=== PATIENT | male | born 1940 | race Caucasian/White ===

== ENCOUNTER 2023-11-10 03:19 | Inpatient (IN) | payer MEDICARE, BC ==
[~2023-11-10] VITALS: Ht 177.8 cm; Wt 90.7 kg
[2023-11-10] MEDS ORDERED: hydrALAZINE HCL IV 20 MG VIAL ONE (04:12)
[2023-11-10] MEDS ORDERED: FUROSEMIDE 40 MG/4 ML VIAL ONE (04:12)
[2023-11-10 04:16] LABS: BASOPHILS % (AUTO) 0.3 % (0.0-2.0); EOSINOPHILS # (AUTO) 0.2 K/uL (0.0-0.7); EOSINOPHILS % (AUTO) 1.2 % (0.0-6.0); HEMATOCRIT 44 % (39-51); HEMOGLOBIN 15.1 g/dL (13.5-17.5); LYMPHOCYTES # (AUTO) 1.9 K/uL (0.8-4.8); LYMPHOCYTES % (AUTO) 13.8 % (20.0-44.0); MEAN CORPUSCULAR HEMOGLOBIN 31 PG (26.0-33.0); MEAN CORPUSCULAR HGB CONC 34 g/dl (31.0-36.0); MEAN CORPUSCULAR VOLUME 90 fL (80-96); MONOCYTES # (AUTO) 0.6 K/uL (0.1-1.30); NEUTROPHILS # (AUTO) 11.2 K/uL (1.8-8.9); NEUTROPHILS % (AUTO) 80.7 % (43.0-81.0); PLATELET COUNT (AUTO) 180 K/uL (150-450); RED CELL DISTRIBUTION WIDTH 14.2 % (11.5-15.0); WHITE BLOOD COUNT (AUTO) 13.9 K/uL (4.3-11.0)
[2023-11-10 04:29] LABS: INR 0.99 (0.91-1.10); PARTIAL THROMBOPLASTIN TIME 27.6 SEC (24.3-34.3); PROTHROMBIN TIME 10.5 SECS (9.2-11.1)
[2023-11-10] MEDS: hydrALAZINE HCL IV 20 MG VIAL IV ONE (04:35)
[2023-11-10 04:36] LABS: ALANINE AMINOTRANSFERASE 24 U/L (12-78); ALBUMIN 3.4 g/dL (3.4-5.0); ALKALINE PHOSPHATASE 149 U/L (46-116); ASPARTATE AMINOTRANSFERASE 15 U/L (15-37); BILIRUBIN,DIRECT 0.2 mg/dL (0.0-0.2); BILIRUBIN,TOTAL 0.8 mg/dL (0.2-1.0); CALCIUM, SERUM 9.8 mg/dL (8.5-10.1); CARBON DIOXIDE 23 mmol/L (21-32); CHLORIDE 105 mmol/L (98-107); CREATININE 1.3 mg/dL (0.6-1.3); GLUCOSE 127 mg/dL (74-106); NT-PRO BNP 730 pg/mL (0-125); SODIUM SERUM 141 mmol/L (136-145); TOTAL PROTEIN, SERUM 6.8 g/dL (6.4-8.2); UREA NITROGEN, BLOOD 18 mg/dL (7-18)
[2023-11-10] MEDS: FUROSEMIDE 40 MG/4 ML VIAL IV ONE (04:40)
[2023-11-10] MEDS: MORPHINE SULFATE INJ 2 MG/ML DISP.SYRIN IV ONE (05:00)
[2023-11-10] MEDS ORDERED: MORPHINE SULFATE INJ 4 MG/ML DISP.SYRIN ONE (05:05)
[2023-11-10] MEDS ORDERED: ACETAMINOPHEN 325 MG TABLET PO PRN (06:00)
[2023-11-10] MEDS ORDERED: ZOLPIDEM TARTRATE 5 MG TABLET PO PRN (06:00)
[2023-11-10] MEDS ORDERED: Z GUARD REMEDY 4 OZ OINT TP PRN (06:00)
[2023-11-10] MEDS ORDERED: MAGNESIUM HYDROXIDE 30 ML UDC PO PRN (06:00)
[2023-11-10] MEDS ORDERED: NITROGLYCERIN 0.4 MG/TAB BOTTLE SL PRN (06:00)
[2023-11-10] MEDS ORDERED: IBUP200C5 PO (07:28)
[2023-11-10] MEDS ORDERED: ATOR40TA PO (07:28)
[2023-11-10] MEDS ORDERED: CHOL100062 PO (07:28)
[2023-11-10] MEDS ORDERED: OLME40TA18 PO (07:28)
[2023-11-10] MEDS ORDERED: BRIM5DRO2 EACHEYE (07:28)
[2023-11-10] MEDS ORDERED: CLOP75TA15 PO (07:28)
[2023-11-10] MEDS ORDERED: ALLO100T PO (07:28)
[2023-11-10] MEDS ORDERED: METO25CA PO (07:28)
[2023-11-10] MEDS ORDERED: BIMA2.5D5 EACHEYE (07:28)
[2023-11-10] MEDS ORDERED: ONDANSETRON HCL/PF 4 MG/2 ML VIAL ONE (07:57)
[2023-11-10] MEDS: ONDANSETRON HCL/PF 4 MG/2 ML VIAL IVP PRN (08:03)
[2023-11-10] MEDS: METOPROLOL TARTRATE 50 MG TABLET PO SCH (09:00)
[2023-11-10] MEDS ORDERED: LATANOPROST EYE DROP 0.005% 2.5 ML BOTTLE OP SCH (09:00)
[2023-11-10] MEDS: ALLOPURINOL 100 MG TABLET PO SCH (09:00)
[2023-11-10] MEDS ORDERED: Medication Not On Formulary EA (Metoprolol Succinate (Kapspargo Sprinkle) 25 MG) PO SCH (09:00)
[2023-11-10] MEDS: ENOXAPARIN SODIUM 40 MG/0.4 ML DISP.SYRIN SQ SCH (09:00)
[2023-11-10] MEDS: ASPIRIN 325 MG TABLET PO SCH (09:00)
[2023-11-10] MEDS ORDERED: ENOXAPARIN SODIUM 40 MG/0.4 ML DISP.SYRIN SQ ONE (09:06)
[2023-11-10] MEDS ORDERED: CLOPIDOGREL BISULFATE 75 MG TABLET ONE (09:06)
[2023-11-10] MEDS ORDERED: LOSARTAN POTASSIUM 50 MG TABLET ONE (09:06)
[2023-11-10] MEDS ORDERED: PANTOPRAZOLE 40 MG TABLET.DR PO ONE (09:07)
[2023-11-10] MEDS ORDERED: ASPIRIN EC 325 MG TABLET.DR PO ONE (09:07)
[2023-11-10] MEDS ORDERED: ALLOPURINOL 100 MG TABLET ONE (09:09)
[2023-11-10] MEDS ORDERED: MAG HYDROX/AL HYDROX/SIMETH 30 ML UDC ONE (09:27)
[2023-11-10] MEDS: MAG HYDROX/AL HYDROX/SIMETH 30 ML UDC PO PRN (09:33)
[2023-11-10] MEDS: LOSARTAN POTASSIUM 50 MG TABLET PO SCH (09:34)
[2023-11-10] MEDS: PANTOPRAZOLE 40 MG TABLET.DR PO SCH (09:36)
[2023-11-10] MEDS ORDERED: METOPROLOL TARTRATE 50 MG TABLET ONE (10:05)
[2023-11-10] MEDS: CLOPIDOGREL BISULFATE 75 MG TABLET PO SCH (10:30)
[2023-11-10] MEDS: FUROSEMIDE 20 MG/2 ML VIAL IV SCH ×2 (11:40→16:33)
[2023-11-10 12:40] VITALS: BP 154/73
[2023-11-10] MEDS: hydrALAZINE HCL 25 MG TABLET PO SCH (14:56)
[2023-11-10 16:00] VITALS: BP 152/75; TEMP 97.3; O2SAT 96
[2023-11-10 20:00] VITALS: BP 169/75; TEMP 97.5; O2SAT 97
[2023-11-10] MEDS: ATORVASTATIN 40 MG TABLET PO SCH (21:01)
[2023-11-11] VITALS: BP 176/71; TEMP 98.6; O2SAT 98
[2023-11-11 04:00] VITALS: BP 176/66; TEMP 98.1; O2SAT 95
[2023-11-11 05:00] VITALS: BP 176/66; TEMP 98.4; O2SAT 95
[2023-11-11 06:50] LABS: BASOPHILS % (AUTO) 0.2 % (0.0-2.0); EOSINOPHILS # (AUTO) 0.1 K/uL (0.0-0.7); EOSINOPHILS % (AUTO) 0.5 % (0.0-6.0); HEMATOCRIT 45 % (39-51); HEMOGLOBIN 15.5 g/dL (13.5-17.5); LYMPHOCYTES # (AUTO) 2.1 K/uL (0.8-4.8); LYMPHOCYTES % (AUTO) 16.1 % (20.0-44.0); MEAN CORPUSCULAR HEMOGLOBIN 31 PG (26.0-33.0); MEAN CORPUSCULAR HGB CONC 35 g/dl (31.0-36.0); MEAN CORPUSCULAR VOLUME 90 fL (80-96); MONOCYTES # (AUTO) 1.1 K/uL (0.1-1.30); MONOCYTES % (AUTO) 8.1 % (2.0-12.0); NEUTROPHILS # (AUTO) 9.9 K/uL (1.8-8.9); NEUTROPHILS % (AUTO) 75.1 % (43.0-81.0); PLATELET COUNT (AUTO) 174 K/uL (150-450); RED CELL DISTRIBUTION WIDTH 14.1 % (11.5-15.0); WHITE BLOOD COUNT (AUTO) 13.2 K/uL (4.3-11.0)
[2023-11-11 07:17] LABS: ALANINE AMINOTRANSFERASE 30 U/L (12-78); ALBUMIN 3.5 g/dL (3.4-5.0); ALKALINE PHOSPHATASE 141 U/L (46-116); ASPARTATE AMINOTRANSFERASE 30 U/L (15-37); CARBON DIOXIDE 27 mmol/L (21-32); CHLORIDE 102 mmol/L (98-107); CREATININE 1.6 mg/dL (0.6-1.3); GLUCOSE 103 mg/dL (74-106); MAGNESIUM 2.2 mg/dL (1.8-2.4); NT-PRO BNP 1866 pg/mL (0-125); PHOSPHORUS 3.6 mg/dL (2.5-4.9); POTASSIUM 3.9 mmol/L (3.5-5.1); SODIUM SERUM 143 mmol/L (136-145); UREA NITROGEN, BLOOD 21 mg/dL (7-18)
[2023-11-11 07:30] VITALS: BP 168/75; TEMP 99.3; O2SAT 96
[2023-11-11 08:01] LABS: BILIRUBIN,DIRECT 0.3 mg/dL (0.0-0.2); BILIRUBIN,TOTAL 1.3 mg/dL (0.2-1.0)
[2023-11-11] MEDS ORDERED: CLONIDINE HCL 0.1 MG TABLET PO PRN (10:30)
[2023-11-11 20:00] VITALS: BP 119/61; TEMP 98.1; O2SAT 97
[2023-11-11] MEDS: hydrALAZINE HCL 25 MG TABLET PO SCH (21:10)
[2023-11-12] VITALS: BP 161/69; TEMP 97.2; O2SAT 97
[2023-11-12 04:00] VITALS: BP 157/80; TEMP 98.2; O2SAT 96
[2023-11-12 08:00] VITALS: BP 145/64; TEMP 98.6; O2SAT 96
[2023-11-12] MEDS ORDERED: FURO20TA4 PO (09:24)
[2023-11-12] MEDS: FUROSEMIDE 20 MG TABLET PO SCH (09:29)
[2023-11-12 09:49] LABS: CARBON DIOXIDE 26 mmol/L (21-32); CHLORIDE 102 mmol/L (98-107); CREATININE 1.8 mg/dL (0.6-1.3); GLUCOSE 174 mg/dL (74-106); POTASSIUM 3.3 mmol/L (3.5-5.1); SODIUM SERUM 139 mmol/L (136-145); UREA NITROGEN, BLOOD 25 mg/dL (7-18)
[2023-11-12 12:24] VITALS: BP 145/64
[2023-11-12] MEDS: POTASSIUM CHLORIDE 20 MEQ TAB.PRT.SR PO ONE (12:24)
== END 2023-11-12 13:40 | disposition home health service (06) | DRG 305 ==
LOC: ER 03:23 → TRANSITION 06:55 → TELE 09:24 → MED 11-12 11:34
PROVIDERS: ADMIT Internal Medicine; ATTEND Internal Medicine
DX: I16.0 Hypertensive urgency (principal); N17.9 Acute kidney failure, unspecified; Z95.1 Presence of aortocoronary bypass graft; I87.2 Venous insufficiency (chronic) (peripheral); Z88.2 Allergy status to sulfonamides; R60.9 Edema, unspecified; Z90.79 Acquired absence of other genital organ(s); Z85.46 Personal history of malignant neoplasm of prostate; M16.12 Unilateral primary osteoarthritis, left hip; I10 Essential (primary) hypertension; E78.5 Hyperlipidemia, unspecified; I25.10 Atherosclerotic heart disease of native coronary artery without angina pectoris; Z91.199 Patient's noncompliance with other medical treatment and regimen due to unspecified reason; Z91.148 Patient's other noncompliance with medication regimen for other reason; Z79.02 Long term (current) use of antithrombotics/antiplatelets; Z79.899 Other long term (current) drug therapy; R32 Unspecified urinary incontinence
CPT/HCPCS: 36415; 70450-TC; 71045-TC; 80048-TC; 80076-TC; 83735-TC; 83880; 84100-TC; 84443-TC; 84484-TC; 85025-TC; 85730-TC; 93307-TC; 97110-TC; 97116-TC; 97530-TC; G0378; J0360; J1650; J1940; J2270; J2405

== ENCOUNTER 2024-10-06 13:22 | Inpatient (IN) | payer MEDICARE, BC ==
[~2024-10-06] VITALS: Ht 180.3 cm; Wt 90.7 kg
[~2024-10-06 13:22] MED LIST: ALLO100T PO; ATOR40TA PO; BIMA2.5D5 EACHEYE; BRIM5DRO2 EACHEYE; CHOL100062 PO; CLOP75TA15 PO; FURO20TA4 PO; IBUP200C5 PO; METO25CA PO; OLME40TA18 PO
[2024-10-06 14:20] LABS: BASOPHILS # (AUTO) 0.1 K/uL (0.0-0.2); BASOPHILS % (AUTO) 0.4 % (0.0-2.0); EOSINOPHILS # (AUTO) 0.1 K/uL (0.0-0.7); EOSINOPHILS % (AUTO) 0.4 % (0.0-6.0); HEMATOCRIT 38 % (39-51); LYMPHOCYTES # (AUTO) 1.2 K/uL (0.8-4.8); LYMPHOCYTES % (AUTO) 7.7 % (20.0-44.0); MEAN CORPUSCULAR HEMOGLOBIN 31 PG (26.0-33.0); MEAN CORPUSCULAR HGB CONC 35 g/dl (31.0-36.0); MEAN CORPUSCULAR VOLUME 89 fL (80-96); MONOCYTES # (AUTO) 0.9 K/uL (0.1-1.30); MONOCYTES % (AUTO) 6.1 % (2.0-12.0); NEUTROPHILS # (AUTO) 12.8 K/uL (1.8-8.9); NEUTROPHILS % (AUTO) 85.4 % (43.0-81.0); PLATELET COUNT (AUTO) 98 K/uL (150-450); RED BLOOD CELL COUNT(AUTO) 4.23 MIL/uL (4.5-6.0); RED CELL DISTRIBUTION WIDTH 14.4 % (11.5-15.0)
[2024-10-06 14:25] LABS: CALCIUM, SERUM 8.8 mg/dL (8.5-10.1); CARBON DIOXIDE 25 mmol/L (21-32); CHLORIDE 103 mmol/L (98-107); CREATININE 1.7 mg/dL (0.6-1.3); GLUCOSE 103 mg/dL (74-106); POTASSIUM 3.3 mmol/L (3.5-5.1); SODIUM SERUM 137 mmol/L (136-145); UREA NITROGEN, BLOOD 26 mg/dL (7-18)
[2024-10-06 14:42] LABS: D-DIMER 2.48 mg/L(FEU (0.17-0.50); INR 1.07 (0.91-1.10); PARTIAL THROMBOPLASTIN TIME 28.7 SEC (24.3-34.3); PROTHROMBIN TIME 11.3 SECS (9.2-11.1)
[2024-10-06] MEDS: CEFEPIME 1 GM in IV D5W 50 ML IV ONE (15:13)
[2024-10-06 15:16] LABS: LACTIC ACID 2.4 mmol/L (0.4-2.0)
[2024-10-06] MEDS ORDERED: ACET-2812 PO (15:23)
[2024-10-06] MEDS ORDERED: MAGNESIUM HYDROXIDE 30 ML UDC PO PRN (15:30)
[2024-10-06] MEDS ORDERED: ONDANSETRON HCL/PF 4 MG/2 ML VIAL IVP PRN (15:30)
[2024-10-06] MEDS ORDERED: ZOLPIDEM TARTRATE 5 MG TABLET PO PRN (15:30)
[2024-10-06] MEDS ORDERED: MAG HYDROX/AL HYDROX/SIMETH 30 ML UDC PO PRN (15:30)
[2024-10-06 15:49] LABS: BILIRUBIN,DIRECT 0.5 mg/dL (0.0-0.2); BILIRUBIN,TOTAL 1.5 mg/dL (0.2-1.0)
[2024-10-06] MEDS: VANCOMYCIN 1 GM in IV D5W 250 ML IV ONE (15:50)
[2024-10-06] MEDS ORDERED: CLINDAMYCIN IV RTU IN D5W 900 MG/50 ML PIGGYBACK IV SCH (17:00)
[2024-10-06] MEDS: METOPROLOL SUCCINATE 25 MG TAB.SR.24H PO SCH (17:14)
[2024-10-06] MEDS: HYDROCODONE/APAP 5/325MG TABLET PO PRN (17:15)
[2024-10-06 18:06] LABS: ANISOCYTOSIS 1+; LYMPHOCYTES % (MANUAL) 11 % (16-48); MONOCYTES % (MANUAL) 9 % (0-11.0); NEUTROPHILS % (MANUAL) 80 (42-76); PLATELET ESTIMATE DECREASED
[2024-10-06] MEDS: CLINDAMYCIN 900 MG in IV D5W 50 ML IV SCH (18:09)
[2024-10-06 20:00] VITALS: BP 144/73; TEMP 98; TEMP 98.1; O2SAT 98
[2024-10-06] MEDS: ATORVASTATIN 40 MG TABLET PO SCH (21:29)
[2024-10-06] MEDS: MORPHINE SULFATE INJ 2 MG/ML DISP.SYRIN IV ONE (21:30)
[2024-10-06] MEDS: HEPARIN SODIUM, PORCINE 5000 UNITS/1 ML VIAL SQ SCH (21:31)
[2024-10-07 04:00] VITALS: BP 125/72; TEMP 99.3; O2SAT 94
[2024-10-07 07:44] LABS: BASOPHILS % (AUTO) 0.1 % (0.0-2.0); EOSINOPHILS % (AUTO) 0.1 % (0.0-6.0); HEMATOCRIT 37 % (39-51); HEMOGLOBIN 12.6 g/dL (13.5-17.5); LYMPHOCYTES # (AUTO) 0.8 K/uL (0.8-4.8); LYMPHOCYTES % (AUTO) 6.9 % (20.0-44.0); MEAN CORPUSCULAR HEMOGLOBIN 31 PG (26.0-33.0); MEAN CORPUSCULAR HGB CONC 35 g/dl (31.0-36.0); MEAN CORPUSCULAR VOLUME 90 fL (80-96); MONOCYTES # (AUTO) 0.7 K/uL (0.1-1.30); MONOCYTES % (AUTO) 6.7 % (2.0-12.0); NEUTROPHILS # (AUTO) 9.4 K/uL (1.8-8.9); NEUTROPHILS % (AUTO) 86.2 % (43.0-81.0); PLATELET COUNT (AUTO) 101 K/uL (150-450); RED BLOOD CELL COUNT(AUTO) 4.04 MIL/uL (4.5-6.0); RED CELL DISTRIBUTION WIDTH 14.2 % (11.5-15.0); WHITE BLOOD COUNT (AUTO) 10.9 K/uL (4.3-11.0)
[2024-10-07 08:00] LABS: CALCIUM, SERUM 8.6 mg/dL (8.5-10.1); CREATININE 1.4 mg/dL (0.6-1.3); LACTIC ACID 1.2 mmol/L (0.4-2.0); MAGNESIUM 1.7 mg/dL (1.8-2.4); PHOSPHORUS 3.5 mg/dL (2.5-4.9); POTASSIUM 3.4 mmol/L (3.5-5.1)
[2024-10-07 08:56] VITALS: BP 148/72; TEMP 99.7; O2SAT 95
[2024-10-07] MEDS: CHOLECALCIFEROL 1,000 UNIT TABLET (VIT D3) PO SCH ×2 (09:00→17:29)
[2024-10-07] MEDS: CLOPIDOGREL BISULFATE 75 MG TABLET PO SCH ×2 (09:00→17:29)
[2024-10-07] MEDS: LOSARTAN POTASSIUM 50 MG TABLET PO SCH (09:04)
[2024-10-07] MEDS: ALLOPURINOL 100 MG TABLET PO SCH (09:04)
[2024-10-07] MEDS: Z GUARD REMEDY 4 OZ OINT TP PRN (09:05)
[2024-10-07] MEDS: LATANOPROST EYE DROP 0.005% 2.5 ML BOTTLE OP SCH (09:05)
[2024-10-07] MEDS: POTASSIUM CHLORIDE 20 MEQ TAB.PRT.SR PO ONE (10:24)
[2024-10-07] MEDS: MAGNESIUM OXIDE 400 MG TABLET PO ONE (11:45)
[2024-10-07 12:21] VITALS: BP 107/63; TEMP 98.2; O2SAT 94
[2024-10-07] MEDS: ACETAMINOPHEN 325 MG TABLET PO PRN (15:56)
[2024-10-07 16:19] VITALS: BP 150/73; TEMP 102.7; O2SAT 95
[2024-10-07 20:00] VITALS: BP 138/77; TEMP 97.9; O2SAT 97
[2024-10-07] MEDS: TIMOLOL 0.5% SOLN OPHTH 5 ML BOTTLE OP SCH (22:00)
[2024-10-07] MEDS: BRIMONIDINE TARTRATE OPHT SOLN 5 ML BOTTLE EACHEYE SCH (22:17)
[2024-10-08] VITALS: BP 159/68; TEMP 98.2; O2SAT 97
[2024-10-08] MEDS ORDERED: CEFEPIME 2 GM in IV D5W 100 ML IV SCH (06:38)
[2024-10-08] MEDS: CEFEPIME 2 GM in IV D5W 100 ML IV SCH ×2 (06:38→17:08)
[2024-10-08 07:27] LABS: BASOPHILS % (AUTO) 0.4 % (0.0-2.0); EOSINOPHILS # (AUTO) 0.2 K/uL (0.0-0.7); EOSINOPHILS % (AUTO) 1.6 % (0.0-6.0); HEMATOCRIT 34 % (39-51); HEMOGLOBIN 11.7 g/dL (13.5-17.5); LYMPHOCYTES # (AUTO) 1.1 K/uL (0.8-4.8); LYMPHOCYTES % (AUTO) 11.1 % (20.0-44.0); MEAN CORPUSCULAR HEMOGLOBIN 31 PG (26.0-33.0); MEAN CORPUSCULAR HGB CONC 34 g/dl (31.0-36.0); MEAN CORPUSCULAR VOLUME 91 fL (80-96); MONOCYTES # (AUTO) 0.8 K/uL (0.1-1.30); MONOCYTES % (AUTO) 8.3 % (2.0-12.0); NEUTROPHILS # (AUTO) 7.8 K/uL (1.8-8.9); NEUTROPHILS % (AUTO) 78.6 % (43.0-81.0); PLATELET COUNT (AUTO) 116 K/uL (150-450); RED BLOOD CELL COUNT(AUTO) 3.75 MIL/uL (4.5-6.0); RED CELL DISTRIBUTION WIDTH 14.4 % (11.5-15.0); WHITE BLOOD COUNT (AUTO) 9.9 K/uL (4.3-11.0)
[2024-10-08 07:45] LABS: CALCIUM, SERUM 8.8 mg/dL (8.5-10.1); CREATININE 1.4 mg/dL (0.6-1.3); MAGNESIUM 1.9 mg/dL (1.8-2.4); PHOSPHORUS 3.2 mg/dL (2.5-4.9); POTASSIUM 3.1 mmol/L (3.5-5.1)
[2024-10-08 08:00] VITALS: BP 146/85; TEMP 98.2; O2SAT 97
[2024-10-08] MEDS: FUROSEMIDE 20 MG TABLET PO SCH (08:57)
[2024-10-08 10:07] LABS: CREATININE, URINE 180.7 MG/DL (30.0-125.0); URINE TOTAL PROTEIN 105.6 mg/dL (0-11.9)
[2024-10-08 10:12] LABS: APPEARANCE,URINE CLEAR (CLEAR); BILIRUBIN,URINE NEGATIVE (NEGATIVE); BLOOD, URINE TRACE-INTA Ery/uL (NEGATIVE); COLOR,URINE DARK YELLOW (YELLOW); KETONES,URINE NEGATIVE (NEGATIVE); LEUKOCYTE ESTERASE ,URINE TRACE (NEGATIVE); NITRITE, URINE NEGATIVE (NEGATIVE); PH,URINE 5.5 (5.0-8.0); PROTEIN,URINE 2+ mg/dl (NEGATIVE); UGLUCOSE NEGATIVE (NEGATIVE); UROBILINOGEN,URINE 0.2 EU/dL (0.2)
[2024-10-08 10:20] LABS: ADD URINE CULTURE YES; BACTERIA,URINE 2+ /HPF (None Seen); SQUAMOUS EPITHELIAL CELL,UR None Seen /HPF (None Seen)
[2024-10-08] MEDS: POTASSIUM CHLORIDE 20 MEQ TAB.PRT.SR PO SCH (10:20)
[2024-10-08] MEDS: LIDOCAINE 5% (PATCH) 1 EA PATCH TP SCH (10:21)
[2024-10-08] MEDS: CLOPIDOGREL BISULFATE 75 MG PO SCH (12:09)
[2024-10-08 13:29] LABS: EOSINOPHIL,URINE None Seen
[2024-10-08 16:00] VITALS: BP 137/79; TEMP 98.6; O2SAT 96
[2024-10-08] MEDS: APIXABAN 2.5 MG TABLET PO SCH (17:08)
[2024-10-08 20:00] VITALS: BP 145/75; TEMP 98.8; O2SAT 97
[2024-10-09 06:36] LABS: BASOPHILS % (AUTO) 0.2 % (0.0-2.0); EOSINOPHILS # (AUTO) 0.1 K/uL (0.0-0.7); EOSINOPHILS % (AUTO) 1.1 % (0.0-6.0); HEMATOCRIT 35 % (39-51); HEMOGLOBIN 12.1 g/dL (13.5-17.5); LYMPHOCYTES # (AUTO) 0.7 K/uL (0.8-4.8); LYMPHOCYTES % (AUTO) 6.4 % (20.0-44.0); MEAN CORPUSCULAR HEMOGLOBIN 31 PG (26.0-33.0); MEAN CORPUSCULAR HGB CONC 35 g/dl (31.0-36.0); MEAN CORPUSCULAR VOLUME 90 fL (80-96); MONOCYTES # (AUTO) 0.8 K/uL (0.1-1.30); MONOCYTES % (AUTO) 6.8 % (2.0-12.0); NEUTROPHILS # (AUTO) 9.6 K/uL (1.8-8.9); NEUTROPHILS % (AUTO) 85.5 % (43.0-81.0); PLATELET COUNT (AUTO) 153 K/uL (150-450); RED BLOOD CELL COUNT(AUTO) 3.89 MIL/uL (4.5-6.0); RED CELL DISTRIBUTION WIDTH 14.8 % (11.5-15.0); WHITE BLOOD COUNT (AUTO) 11.2 K/uL (4.3-11.0)
[2024-10-09 07:30] VITALS: BP 159/86; TEMP 100; O2SAT 97
[2024-10-09 07:52] LABS: ALBUMIN 2.1 g/dL (3.4-5.0); CALCIUM, SERUM 8.8 mg/dL (8.5-10.1); CREATININE 1.5 mg/dL (0.6-1.3); MAGNESIUM 1.9 mg/dL (1.8-2.4); PHOSPHORUS 2.5 mg/dL (2.5-4.9); POTASSIUM 3.9 mmol/L (3.5-5.1); TOTAL PROTEIN, SERUM 6.3 g/dL (6.4-8.2)
[2024-10-09 16:00] VITALS: BP 145/65; TEMP 98.1; O2SAT 97
[2024-10-09 20:00] VITALS: BP 145/74; TEMP 99.3; O2SAT 97
[2024-10-10 06:09] LABS: PTH, INTACT 34 pg/mL (15-65)
[2024-10-10 06:30] LABS: BASOPHILS # (AUTO) 0.1 K/uL (0.0-0.2); BASOPHILS % (AUTO) 0.5 % (0.0-2.0); EOSINOPHILS # (AUTO) 0.2 K/uL (0.0-0.7); EOSINOPHILS % (AUTO) 1.8 % (0.0-6.0); HEMATOCRIT 36 % (39-51); HEMOGLOBIN 12.1 g/dL (13.5-17.5); LYMPHOCYTES % (AUTO) 7.5 % (20.0-44.0); MEAN CORPUSCULAR HEMOGLOBIN 31 PG (26.0-33.0); MEAN CORPUSCULAR HGB CONC 34 g/dl (31.0-36.0); MEAN CORPUSCULAR VOLUME 91 fL (80-96); MONOCYTES % (AUTO) 7.3 % (2.0-12.0); NEUTROPHILS # (AUTO) 11.4 K/uL (1.8-8.9); NEUTROPHILS % (AUTO) 82.9 % (43.0-81.0); PLATELET COUNT (AUTO) 193 K/uL (150-450); RED BLOOD CELL COUNT(AUTO) 3.96 MIL/uL (4.5-6.0); RED CELL DISTRIBUTION WIDTH 14.8 % (11.5-15.0); WHITE BLOOD COUNT (AUTO) 13.8 K/uL (4.3-11.0)
[2024-10-10 06:56] LABS: CALCIUM, SERUM 8.9 mg/dL (8.5-10.1); CREATININE 1.3 mg/dL (0.6-1.3); MAGNESIUM 1.9 mg/dL (1.8-2.4); PHOSPHORUS 2.7 mg/dL (2.5-4.9); POTASSIUM 3.6 mmol/L (3.5-5.1); TOTAL PROTEIN, SERUM 6.2 g/dL (6.4-8.2)
[2024-10-10 08:38] VITALS: BP 151/75; TEMP 99.5; O2SAT 96
[2024-10-10 16:00] VITALS: BP 132/71; TEMP 99; O2SAT 100
[2024-10-10 20:00] VITALS: BP 143/68; TEMP 98.6; O2SAT 98
[2024-10-10 20:45] VITALS: BP 143/68; TEMP 98.6; O2SAT 98
[2024-10-11 07:21] LABS: BASOPHILS % (AUTO) 0.3 % (0.0-2.0); EOSINOPHILS # (AUTO) 0.3 K/uL (0.0-0.7); EOSINOPHILS % (AUTO) 2.3 % (0.0-6.0); HEMATOCRIT 35 % (39-51); HEMOGLOBIN 11.8 g/dL (13.5-17.5); LYMPHOCYTES # (AUTO) 1.2 K/uL (0.8-4.8); LYMPHOCYTES % (AUTO) 7.9 % (20.0-44.0); MEAN CORPUSCULAR HEMOGLOBIN 31 PG (26.0-33.0); MEAN CORPUSCULAR HGB CONC 34 g/dl (31.0-36.0); MEAN CORPUSCULAR VOLUME 91 fL (80-96); MONOCYTES # (AUTO) 1.1 K/uL (0.1-1.30); MONOCYTES % (AUTO) 7.2 % (2.0-12.0); NEUTROPHILS # (AUTO) 12.1 K/uL (1.8-8.9); NEUTROPHILS % (AUTO) 82.3 % (43.0-81.0); PLATELET COUNT (AUTO) 243 K/uL (150-450); RED BLOOD CELL COUNT(AUTO) 3.87 MIL/uL (4.5-6.0); RED CELL DISTRIBUTION WIDTH 14.9 % (11.5-15.0); WHITE BLOOD COUNT (AUTO) 14.7 K/uL (4.3-11.0)
[2024-10-11 07:52] LABS: CALCIUM, SERUM 8.7 mg/dL (8.5-10.1); CREATININE 1.3 mg/dL (0.6-1.3); POTASSIUM 3.6 mmol/L (3.5-5.1)
[2024-10-11 08:30] VITALS: BP_SYST 151; BP_SYST 165; BP_DIAS 71; BP_DIAS 86; TEMP 98.4; TEMP 98.6; O2SAT 97
[2024-10-11] MEDS: ACIDOPHILUS/BULGARICUS 1 EACH TAB.CHEW PO SCH (13:00)
[2024-10-11 16:00] VITALS: BP 151/86; TEMP 98.6; O2SAT 97
[2024-10-11 20:00] VITALS: BP 159/64; TEMP 97.3; O2SAT 97
[2024-10-11] MEDS ORDERED: CEFAZOLIN 1 GM VIAL IM SCH (21:00)
[2024-10-11] MEDS: CEFAZOLIN 2 GM in IV D5W 100 ML IV SCH (21:08)
[2024-10-11 21:30] VITALS: BP 153/86
[2024-10-12 02:41] VITALS: BP 140/80; TEMP 98.1; O2SAT 98
[2024-10-12 07:13] LABS: BASOPHILS % (AUTO) 0.2 % (0.0-2.0); EOSINOPHILS # (AUTO) 0.4 K/uL (0.0-0.7); HEMATOCRIT 36 % (39-51); LYMPHOCYTES % (AUTO) 8.3 % (20.0-44.0); MEAN CORPUSCULAR HEMOGLOBIN 30 PG (26.0-33.0); MEAN CORPUSCULAR HGB CONC 34 g/dl (31.0-36.0); MEAN CORPUSCULAR VOLUME 90 fL (80-96); MONOCYTES # (AUTO) 0.8 K/uL (0.1-1.30); MONOCYTES % (AUTO) 6.9 % (2.0-12.0); NEUTROPHILS % (AUTO) 81.6 % (43.0-81.0); PLATELET COUNT (AUTO) 285 K/uL (150-450); RED BLOOD CELL COUNT(AUTO) 3.94 MIL/uL (4.5-6.0); RED CELL DISTRIBUTION WIDTH 14.8 % (11.5-15.0); WHITE BLOOD COUNT (AUTO) 12.3 K/uL (4.3-11.0)
[2024-10-12 07:25] LABS: CALCIUM, SERUM 8.5 mg/dL (8.5-10.1); CREATININE 1.2 mg/dL (0.6-1.3); POTASSIUM 3.6 mmol/L (3.5-5.1)
[2024-10-12 07:30] VITALS: BP 154/82; TEMP 98.2; O2SAT 95
[2024-10-12 14:42] LABS: HIV-1 p24 ANTIGEN NON REACTIVE (NONREACTIVE); HIV-1/2 ANTIBODY NON REACTIVE (NONREACTIVE)
[2024-10-12 16:00] VITALS: BP 143/79; TEMP 99.3; O2SAT 98
[2024-10-12 20:00] VITALS: BP 141/77; TEMP 98.1; O2SAT 95
[2024-10-13 08:00] VITALS: BP 163/78; TEMP 98.1; O2SAT 98
[2024-10-13 08:50] VITALS: BP 163/78
[2024-10-13] MEDS ORDERED: TRAM50TA PO (12:47)
[2024-10-13] MEDS ORDERED: LIDO30AD10 TP (12:47)
[2024-10-13] MEDS ORDERED: CEFA1VIA19 IV (12:47)
[2024-10-13] MEDS ORDERED: FURO20TA4 PO (12:47)
[2024-10-13] MEDS ORDERED: APIX2.5T PO (12:47)
[2024-10-13] MEDS ORDERED: TRAM50TA2 PO (12:47)
[2024-10-13] MEDS ORDERED: ACID1TAB12 PO (12:47)
[2024-10-14 06:09] LABS: *SPE A/G RATIO 0.7 (0.7-1.7); *SPE ALBUMIN 2.1 g/dL (2.9-4.4); *SPE ALPHA-1-GLOBULIN 0.5 g/dL (0.0-0.4); *SPE ALPHA-2-GLOBULIN 1.1 g/dL (0.4-1.0); *SPE BETA GLOBULIN 0.8 g/dL (0.7-1.3); *SPE M-SPIKE Not Observed g/dL (Not Observed); *SPE PROTEIN TOTAL 5.1 g/dL (6.0-8.5); *SPEGAMMA GLOBULIN 0.6 g/dL (0.4-1.8)
[2024-10-14] MEDS ORDERED: CLOPIDOGREL BISULFATE 75 MG PO SCH (09:00)
== END 2024-10-13 14:40 | DRG 871 ==
LOC: ER 13:27 → MED 16:07 → TELE 10-07 03:18 → MED 10-08 10:07
PROVIDERS: ADMIT Nurse Practitioner Acute Care; ATTEND Nurse Practitioner Acute Care
DX: A41.50 Gram-negative sepsis, unspecified (principal); N17.0 Acute kidney failure with tubular necrosis; L03.115 Cellulitis of right lower limb; I50.32 Chronic diastolic (congestive) heart failure; I13.0 Hypertensive heart and chronic kidney disease with heart failure and stage 1 through stage 4 chronic kidney disease, or unspecified chronic kidney disease; L03.116 Cellulitis of left lower limb; E87.1 Hypo-osmolality and hyponatremia; E87.20 Acidosis, unspecified; I73.9 Peripheral vascular disease, unspecified; Z90.79 Acquired absence of other genital organ(s); E87.6 Hypokalemia; I25.10 Atherosclerotic heart disease of native coronary artery without angina pectoris; N18.9 Chronic kidney disease, unspecified; Z95.1 Presence of aortocoronary bypass graft; N40.0 Benign prostatic hyperplasia without lower urinary tract symptoms; Z85.46 Personal history of malignant neoplasm of prostate; Z85.07 Personal history of malignant neoplasm of pancreas; Z79.02 Long term (current) use of antithrombotics/antiplatelets; Z88.2 Allergy status to sulfonamides; Z79.899 Other long term (current) drug therapy; I87.2 Venous insufficiency (chronic) (peripheral); I89.0 Lymphedema, not elsewhere classified; M89.8X9 Other specified disorders of bone, unspecified site; E86.9 Volume depletion, unspecified; D64.9 Anemia, unspecified; B96.89 Other specified bacterial agents as the cause of diseases classified elsewhere; M19.90 Unspecified osteoarthritis, unspecified site
CPT/HCPCS: 36415; 71045-TC; 73521; 73700-TC; 76770-TC; 80048-TC; 80053-TC; 81001; 82247-TC; 82248-TC; 82550-TC; 82570-TC; 83605-TC; 83735-TC; 83970; 84100-TC; 84155; 84165; 84300-TC; 85025-TC; 85378-TC; 85730-TC; 86803; 87040-TC; 87081-TC; 87086-TC; 87186-TC; 87806; 93970-TC; 97110-TC; 97116-TC; 97530-TC; A4223; G0378; J0690; J0692; J1644; J2270; J3370; J3490; J7040; J7060